=== PATIENT | male | born 1985 | race Two or more races ===

== ENCOUNTER 2025-04-12 08:59 | Emergency (ER) | payer SELFPAY ==
[~2025-04-12] VITALS: Ht 172.7 cm; Wt 89.8 kg
--- NOTE | 2025-04-12 10:00 | DVH ---
CLINICAL HISTORY: POSSIBLE DISLOCATION TECHNIQUE: 2 views of the right shoulder were obtained. COMPARISON: None FINDINGS: There is an anterior subcoracoid dislocation. No fracture is seen. There are no significant degenerative changes. IMPRESSION: Anterior subcoracoid dislocation.
[2025-04-12] MEDS: ONDANSETRON HCL 4 MG/2 ML VIAL IV ONE (10:06)
[2025-04-12] MEDS: HYDROmorphone HCL 2 MG/ML VL/or syr IV ONE (10:13)
[2025-04-12 10:16] VITALS: PULSE 56; RESP 20; O2SAT 97
--- NOTE | 2025-04-12 11:07 | ED.PDOC ---
Musculoskeletal HPI Comments 40-year-old male presents here with right arm pain. Patient states earlier this morning he was throwing a heavy jacket with sudden onset of pain to the right upper extremity. No other pain. No history of previous shoulder dislocation or injury. Patient reports pain to the right upper arm. Chief Complaint: Upper Extremity Time Seen by MD: 09:36 Reviewed Notes: Nurses Notes Allergies: Coded Allergies: NO KNOWN ALLERGIES (Unverified , 04/12/25) Mode of Arrival: Ambulatory Past Medical History PAST MEDICAL HISTORY: Denies Surgical History: Denies all surgeries Social History Smoker: Non-Smoker Alcohol: Denies ETOH Use Drugs: Denies Drug Use All Other Systems: Reviewed and Negative Physical Exam General Appearance: Severe Distress HEENT: Normal ENT Inspection, Pharynx Normal, TMs Normal Neck: Full Range of Motion, Non-Tender, Normal, Normal Inspection Respiratory: Chest Non-Tender, Lungs Clear, No Accessory Muscle Use, No Respiratory Distress, Normal Breath Sounds Cardiovascular: No Edema, No JVD, No Murmur, No Gallop, Normal Peripheral Pulses, Regular Rate/Rhythm Breast Exam: Deferred Gastrointestinal: No Organomegaly, Non Tender, No Pulsatile Mass, Normal Bowel Sounds, Soft Genitalia: Deferred Pelvic: Deferred Rectal: Deferred Extremities: Other (Obvious deformity to the right upper shoulder, +2 right radial pulse) Musculoskeletal : Apperance: Normal Neurologic: Alert, shredder picker II-XII nml as Tested, No Motor Deficits, Normal Affect, Normal Mood, No Sensory Deficits Cerebellar Function: Normal Reflexes: Normal Skin: Dry, Normal Color, Warm Lymphatic: No Adenopathy Was a procedure done? Was a procedure done?: Yes Sedation Sedation?: Yes Informed consent obtained: Yes Sedation start time: 13:15 Sedation end time: 13:24 Sedation total time: 9 min Reduction Indication: Dislocation Sedation: Consents obtained Intra-articular anesthetic yanely: No Post-reduction x-ray show: Reduction, Good Alignment Informed consent obtained: Yes Risks/benefits/alt described: Yes EKG EKG : Comments Rate of 47, sinus bradycardia, no significant ST changes Differential Diagnosis EXT Differential Diagnosis: Fracture, Sprain, Dislocation, Neurovascular injury X-Ray, Labs, Meds, VS Vital Signs Date Time Temp Pulse Resp B/P (MAP) Pulse Ox O2 Delivery O2 Flow Rate FiO2 04/12/25 13:14 71 18 99 2.0 28 89 8 99 67 100 04/12/25 10:16 56 20 97 Room Air* 0 21 04/12/25 10:13 12 20 131/89 04/12/25 09:06 97.7 77 18 168/93 96 97.7 Current Medications Medications (Trade) Dose Ordered Sig/Shaquille Route Start Time Stop Time Status Last Admin Hydromorphone HCl (Dilaudid Injection) 1 mg ONCE ONCE IV 04/12/25 09:45 04/12/25 09:46 DC 04/12/25 10:13 Ondansetron HCl (Zofran) 4 mg ONCE ONCE IV 04/12/25 09:45 04/12/25 09:46 DC 04/12/25 10:06 40-year-old male presents here with right arm pain. He has obvious deformity on my examination. X-ray with evidence of right shoulder dislocation. No history of previous dislocation in the past. Time of 1ST Reevaluation: 14:16 Reevaluation 1ST: Improved Patient Education/Counseling: Diagnosis, Treatment Family Education/Counseling: Diagnosis, Treatment Departure 1 Departure Time of Disposition: 14:13 Impression: Primary Impression: Shoulder dislocation Qualified Codes: S43.004A - Unspecified dislocation of right shoulder joint, initial encounter Disposition: 01 HOME / SELF CARE / HOMELESS Condition: Fair Additional Instructions: Please keep your shoulder immobilizer on at all times including when you sleep. You may take it off when you shower but please keep your hand by your side even when you shower otherwise you may dislocated again. Please follow up with the orthopedic surgeon. You can follow up with Dr. Ricki Muse. Address: [address] [place] [address] [address], [place] [address] You will need the shoulder immobilizer on for at least 6 weeks. Please return back to the ER as needed. Discharged With: Self Critical Care Note Critical Care Time?: No Stability Stability form required: No Heart Score Heart Score: Heart Score Response (Comments) Value History N/A 0 EKG N/A 0 Age N/A 0 Risk Factors N/A 0 Troponin N/A 0 Total 0 IZAIAH JANE MD Apr 12, 2025 11:07
[2025-04-12] MEDS ORDERED: PROPOFOL 10 MG/ML 20 ML IV ONE (11:45)
[2025-04-12] MEDS ORDERED: KETAMINE 50mg/ML 10ml Vial (500mg/10ml) IV ONE (13:15)
[2025-04-12] MEDS ORDERED: ATROPINE SULF 1 MG/10ml SYR IV ONE (13:15)
[2025-04-12 13:26] VITALS: BP 119/98; PULSE 75; RESP 13; TEMP 98.4; O2SAT 96
--- NOTE | 2025-04-12 13:47 | DVH ---
CLINICAL INDICATION: S/P REDUCTION TECHNIQUE: XY R SHOULDER 2+ VIEW XRAY Comparison: XY R SHOULDER 2+ VIEW XRAY on DOS: 04/12/25 FINDINGS/IMPRESSION: : There is no evidence of acute fracture or dislocation. Soft tissues are unremarkable.
[2025-04-12] MEDS: PROPOFOL 10 MG/ML 20 ML IV ONE (14:35)
--- NOTE | 2025-04-16 14:13 | ECG ---
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
== END 2025-04-12 14:33 | disposition home or self-care (01) ==
LOC: ER 08:59
DX: S43.004A Unspecified dislocation of right shoulder joint, initial encounter (principal); X58.XXXA Exposure to other specified factors, initial encounter; Y93.89 Activity, other specified; Y92.89 Other specified places as the place of occurrence of the external cause; Y99.8 Other external cause status
CPT/HCPCS: 23650; 73030; 96374; 96375; 99285; J1171; J2405; J2704; 93005